=== PATIENT | male | born 1945 | race Hispanic/Latino ===

== ENCOUNTER 2020-07-23 10:33 | Outpatient (CLI) | payer OTHER ==
--- NOTE | 2020-07-23 14:35 | ULT ---
EXAM: ABDOMINAL AORTIC ULTRASOUND: 07/23/20 HISTORY: Screening study. TECHNIQUE: Fajardo scale, color flow, Doppler imaging with spectral waveform analysis of the aorta. FINDINGS: There are scattered atherosclerotic disease in the visualized aorta. There is patchy throughout the v isualized aorta. Proximal aorta measures 1.7 cm in the sagittal dimension, mid aorta measures 2.5 cm in sagittal dimension, distal aorta measures 1.2 cm in the sagittal dimension. Left iliac artery komal ures 1.3 cm and the right iliac measures 0.9 cm. IMPRESSION: Atherosclerosis involving the aorta, predominantly in the mid portion of the aorta. There is no evide nce of aneurysm by size criteria. POS: [facility]
== END 2020-07-23 10:34 | disposition home or self-care (01) ==
LOC: BICULT 10:33
DX: Z13.6 Encounter for screening for cardiovascular disorders (principal); I70.0 Atherosclerosis of aorta
CPT/HCPCS: 76775

== ENCOUNTER 2024-05-02 05:24 | Inpatient (IN) | payer MEDICARE, OTHER ==
[2024-05-02 05:51] LABS: Base Excess -10.1 mEq/L (-2.0 to +3.0); Calcium, Ionized (venous) 1.13 mmol/L (1.16-1.32); Chloride (VBG) 105 mmol/L (98-106); Hematocrit-VBG 29 % (42.0-52.0); Hemoglobin (Hb) 9.8 g/dL (12.6-17.4); Potassium (VBG) 3.99 mmol/L (3.70-5.30); Sodium 136 mmol/L (133-146)
[2024-05-02 05:52] LABS: #Basophils 0.05 10x3/uL (0.0-0.2); %Basophils 0.4 % (0.0-1.0); %Eosinophils 4.8 % (0.0-10.0); %Lymphocytes 25.9 % (21.0-51.0); %Monocytes 7.3 % (0.0-10.0); %Neutrophils 61.1 % (42.0-75.0); Hematocrit 28.6 % (42.0-52.0); Hemoglobin 9.4 g/dL (14.0-18.0); Mean Corpuscular HGB CONC 32.9 g/dL (32.0-36.0); Mean Corpuscular Hemoglobin 33.7 pg (27.0-31.0); Mean Corpuscular Volume 102.5 fL (78.0-98.0); Mean Platelet Volume 11.8 fL (7.4-10.4); Platelet Count 169 10x3/uL (130-400); RBC Distribution Width 14.3 % (11.5-14.5); Red Blood Cell (RBC) Count 2.79 mill/uL (4.70-6.10)
[2024-05-02 06:16] LABS: Troponin I 0.089 ng/mL (< 0.028)
[2024-05-02 06:20] LABS: ALT (SGPT) 5 U/L (8-55); AST (SGOT) 11 U/L (5-34); Albumin 3.2 g/dL (3.4-4.8); Alkaline Phosphatase 64 U/L (40-110); Anion Gap 15 mmol/L (10-20); BUN (Urea Nitrogen) 33 mg/dL (8.4-25.7); Bilirubin, Total 0.5 mg/dL (0.2-1.2); Calc. Creatinine Clearance 0 mL/min (70-130); Calcium 8.4 mg/dL (7.8-10.44); Carbon Dioxide 16 mmol/L (23-31); Chloride 108 mmol/L (98-107); Estimated GFR 23; Globulin 3.2 g/dL (2.4-3.5); Glucose 282 mg/dL (83-110); Magnesium 2.2 mg/dL (1.6-2.6); Potassium 4.3 mmol/L (3.5-5.1); Protein, Total 6.4 g/dL (5.8-8.1); Sodium 135 mmol/L (136-145)
[2024-05-02] MEDS ORDERED: Nicotine 14 MG PATCH TD PRN (07:55)
[2024-05-02] MEDS ORDERED: Ipratropium/Albuterol 3 ML NEB NEB PRN (08:01)
[2024-05-02] MEDS ORDERED: Nitroglycerin 50 MG/250 ML BOT 250 ML IVPB SCH (08:15)
[2024-05-02] MEDS ORDERED: niCARdipine 40MG In NaCl 40 MG/200 ML BAG IVPB SCH (09:00)
[2024-05-02 09:01] VITALS: BMI 19.9
[2024-05-02 09:27] LABS: Lactic Acid 1.34 mmol/L (0.5-2.2)
[2024-05-02 09:29] LABS: Hemoglobin A1c 5.1 % (4.0-6.0)
[2024-05-02 09:41] LABS: Troponin I 0.704 ng/mL (< 0.028)
[2024-05-02] MEDS: Cefepime 1 GM in Sodium Chloride 0.9% 100 ML IVPB SCH (09:46)
[2024-05-02] MEDS: Sodium Bicarbonate Tab 325 MG TAB PO SCH (09:56)
[2024-05-02] MEDS: hydrALAZINE 25 MG TAB PO SCH (09:57)
[2024-05-02] MEDS: Heparin 5,000 UNITS/ML VIAL SC SCH (09:58)
[2024-05-02] MEDS: niCARdipine 25 MG in Sodium Chloride 0.9% 250 ML 250 ML IVPB SCH (09:59)
[2024-05-02] MEDS: Ipratropium/Albuterol 3 ML NEB NEB SCH (10:11)
[2024-05-02 12:51] LABS: Troponin I 1.736 ng/mL (< 0.028)
[2024-05-02] MEDS: Furosemide 40 MG (4 mL) VIAL SLOW IVP SCH (14:26)
[2024-05-02 15:55] LABS: Anion Gap 15 mmol/L (10-20); BUN (Urea Nitrogen) 36 mg/dL (8.4-25.7); Calc. Creatinine Clearance 20 mL/min (70-130); Calcium 8.5 mg/dL (7.8-10.44); Carbon Dioxide 18 mmol/L (23-31); Chloride 107 mmol/L (98-107); Estimated GFR 26; Glucose 116 mg/dL (83-110); Potassium 4.3 mmol/L (3.5-5.1); Sodium 136 mmol/L (136-145)
[2024-05-02 16:31] LABS: Hematocrit 25.1 % (42.0-52.0); Hemoglobin 8.6 g/dL (14.0-18.0); Platelet Count 140 10x3/uL (130-400)
[2024-05-02] MEDS: Heparin 25,000 units/D5W 500 ML IVPB SCH (17:25)
[2024-05-02] MEDS: Heparin 10,000 UNITS/ 10 ML VIAL SLOW IVP SCH (17:25)
[2024-05-02] MEDS: DOBUTamine 500 mg/250 ml 250 ML IVPB SCH (22:26)
[2024-05-03 03:12] LABS: #Basophils 0.03 10x3/uL (0.0-0.2); %Basophils 0.3 % (0.0-1.0); %Eosinophils 0.5 % (0.0-10.0); %Lymphocytes 5.7 % (21.0-51.0); %Monocytes 10.4 % (0.0-10.0); %Neutrophils 82.7 % (42.0-75.0); Hematocrit 25.3 % (42.0-52.0); Hemoglobin 8.2 g/dL (14.0-18.0); Mean Corpuscular HGB CONC 32.4 g/dL (32.0-36.0); Mean Corpuscular Hemoglobin 32.4 pg (27.0-31.0); Mean Platelet Volume 11.6 fL (7.4-10.4); Platelet Count 150 10x3/uL (130-400); Red Blood Cell (RBC) Count 2.53 mill/uL (4.70-6.10)
[2024-05-03 03:34] LABS: Anion Gap 14 mmol/L (10-20); BUN (Urea Nitrogen) 41 mg/dL (8.4-25.7); Calc. Creatinine Clearance 19 mL/min (70-130); Calcium 8.4 mg/dL (7.8-10.44); Carbon Dioxide 20 mmol/L (23-31); Chloride 106 mmol/L (98-107); Estimated GFR 24; Glucose 140 mg/dL (83-110); Potassium 3.6 mmol/L (3.5-5.1); Sodium 136 mmol/L (136-145)
[2024-05-03 17:45] LABS: Troponin I 1.314 ng/mL (< 0.028)
[2024-05-03] MEDS: Ferrous Sulfate 325 MG TAB PO SCH (18:31)
[2024-05-03] MEDS: Labetalol HCl 100 MG/20 ML VIAL SLOW IVP PRN (19:15)
[2024-05-03] MEDS: Metoprolol Tartrate 25 MG TAB PO SCH (20:57)
[2024-05-03] MEDS: Enoxaparin 60 MG (0.6 mL) SYRINGE SC SCH (20:57)
[2024-05-03] MEDS: Atorvastatin Calcium 40 MG TAB PO SCH (20:57)
[2024-05-03] MEDS ORDERED: Metoprolol Tartrate 25 MG TAB PO SCH (21:00)
[2024-05-04 05:10] LABS: #Basophils Less than 0.03 10x3/uL (0.0-0.2); %Basophils 0.2 % (0.0-1.0); %Eosinophils 1.3 % (0.0-10.0); %Lymphocytes 11.8 % (21.0-51.0); %Neutrophils 73.3 % (42.0-75.0); Hematocrit 23.6 % (42.0-52.0); Hemoglobin 7.9 g/dL (14.0-18.0); Mean Corpuscular HGB CONC 33.5 g/dL (32.0-36.0); Mean Corpuscular Hemoglobin 31.9 pg (27.0-31.0); Mean Corpuscular Volume 95.2 fL (78.0-98.0); Mean Platelet Volume 11.7 fL (7.4-10.4); Platelet Count 154 10x3/uL (130-400); RBC Distribution Width 13.8 % (11.5-14.5); Red Blood Cell (RBC) Count 2.48 mill/uL (4.70-6.10)
[2024-05-04 05:47] LABS: ALT (SGPT) 5 U/L (8-55); AST (SGOT) 11 U/L (5-34); Albumin 2.7 g/dL (3.4-4.8); Alkaline Phosphatase 53 U/L (40-110); Bilirubin, Direct 0.2 mg/dL (0.1-0.3); Bilirubin, Total 0.4 mg/dL (0.2-1.2); Protein, Total 5.6 g/dL (5.8-8.1)
[2024-05-04 05:57] LABS: Anion Gap 13 mmol/L (10-20); BUN (Urea Nitrogen) 52 mg/dL (8.4-25.7); Calc. Creatinine Clearance 18 mL/min (70-130); Calcium 8.1 mg/dL (7.8-10.44); Carbon Dioxide 22 mmol/L (23-31); Cardiac Risk 2.9 (Less than 4.5); Chloride 108 mmol/L (98-107); Cholesterol 95 mg/dl (< 200 Desired); Estimated GFR 22; Glucose 99 mg/dL (83-110); HDL Cholesterol 33 mg/dL (>60 Neg Risk); LDL Cholesterol, Calculated 48 mg/dL; Potassium 3.4 mmol/L (3.5-5.1); Sodium 140 mmol/L (136-145); Triglycerides 72 mg/dL (Less than 150)
[2024-05-04] MEDS: Potassium Chloride 20 MEQ TAB PO SCH (10:15)
[2024-05-04] MEDS: Aspirin 81 mg Enteric Coated Tablet PO SCH (10:18)
[2024-05-04] MEDS: Furosemide 40 MG (4 mL) VIAL SLOW IVP SCH (10:18)
[2024-05-04] MEDS ORDERED: NIFEdipine XL 30 MG ER.TAB PO SCH (14:30)
[2024-05-04] MEDS: Amlodipine 10 MG TAB PO SCH (15:12)
[2024-05-04] MEDS: Albumin 25% 25 GM (100 mL) BOT IVPB SCH ×2 (15:12→20:46)
[2024-05-04 16:09] LABS: Hematocrit 23.5 % (42.0-52.0); Hemoglobin 7.8 g/dL (14.0-18.0); Platelet Count 149 10x3/uL (130-400)
[2024-05-04] MEDS: Atorvastatin Calcium 10 MG TAB PO SCH (20:47)
[2024-05-05 04:38] LABS: #Basophils Less than 0.03 10x3/uL (0.0-0.2); %Basophils 0.1 % (0.0-1.0); %Eosinophils 5.3 % (0.0-10.0); %Lymphocytes 13.6 % (21.0-51.0); %Monocytes 11.3 % (0.0-10.0); %Neutrophils 69.3 % (42.0-75.0); Hematocrit 21.1 % (42.0-52.0); Hemoglobin 6.9 g/dL (14.0-18.0); Mean Corpuscular HGB CONC 32.7 g/dL (32.0-36.0); Mean Corpuscular Hemoglobin 32.4 pg (27.0-31.0); Mean Corpuscular Volume 99.1 fL (78.0-98.0); Mean Platelet Volume 11.4 fL (7.4-10.4); Platelet Count 144 10x3/uL (130-400); RBC Distribution Width 14.1 % (11.5-14.5); Red Blood Cell (RBC) Count 2.13 mill/uL (4.70-6.10)
[2024-05-05 04:56] LABS: Anion Gap 15 mmol/L (10-20); BUN (Urea Nitrogen) 58 mg/dL (8.4-25.7); Calc. Creatinine Clearance 17 mL/min (70-130); Calcium 8.5 mg/dL (7.8-10.44); Carbon Dioxide 23 mmol/L (23-31); Chloride 107 mmol/L (98-107); Estimated GFR 22; Glucose 98 mg/dL (83-110); Iron 10 ug/dL (65-175); Potassium 3.5 mmol/L (3.5-5.1); Sodium 141 mmol/L (136-145)
[2024-05-05 05:10] LABS: Troponin I 0.803 ng/mL (< 0.028)
[2024-05-05 06:25] LABS: Ferritin 71.72 ng/mL (22-322)
[2024-05-05] MEDS ORDERED: NIFEdipine XL 30 MG ER.TAB PO SCH (09:00)
[2024-05-05] MEDS: Amlodipine 10 MG TAB PO SCH (09:18)
[2024-05-05] MEDS: Cyanocobalamin (Vitamin B-12) 1,000 MCG TAB PO SCH (09:19)
[2024-05-05] MEDS: Ferrous Sulfate 325 MG TAB PO SCH (09:19)
[2024-05-05] MEDS: Sodium Ferric Gluconate 250 MG in Sodium Chloride 0.9% 250 ML 250 ML IVPB SCH (15:58)
[2024-05-05 17:59] LABS: Bilirubin Negative (Negative); Blood, Urine Negative (Negative); CAUTI Indications for Culture Fever or rigors; Clarity Clear (Clear); Glucose, Urine (Dipstick) Normal (Negative); Ketone, Urine Negative (Negative); Leukocyte Negative Leu/uL (Negative); Nitrite Negative (Negative); Protein, Urine (Dipstick) 70 mg/dL (Neg-Trace); RBC/HPF 0-3 HPF (0-3); Specific Gravity, Urine 1.003 (1.002-1.036); Squamous Epithelial None Seen HPF (0-3); Urobilinogen Normal mg/dL (Less than 2); WBC/HPF 0-3 HPF (0-3); pH, Urine 6.5 (5.0-9.0)
[2024-05-05 18:06] LABS: Bacteria/HPF 1+ HPF (None Seen)
[2024-05-05 18:07] LABS: Urine Culture Reflex No No
[2024-05-06 05:30] LABS: #Basophils 0.03 10x3/uL (0.0-0.2); %Basophils 0.3 % (0.0-1.0); %Eosinophils 4.2 % (0.0-10.0); %Lymphocytes 8.6 % (21.0-51.0); %Monocytes 9.7 % (0.0-10.0); %Neutrophils 76.8 % (42.0-75.0); Hematocrit 25.8 % (42.0-52.0); Hemoglobin 8.6 g/dL (14.0-18.0); Mean Corpuscular HGB CONC 33.3 g/dL (32.0-36.0); Mean Corpuscular Hemoglobin 32.2 pg (27.0-31.0); Mean Corpuscular Volume 96.6 fL (78.0-98.0); Mean Platelet Volume 11.7 fL (7.4-10.4); Platelet Count 169 10x3/uL (130-400); Red Blood Cell (RBC) Count 2.67 mill/uL (4.70-6.10)
[2024-05-06 06:17] LABS: Anion Gap 14 mmol/L (10-20); BUN (Urea Nitrogen) 65 mg/dL (8.4-25.7); Calc. Creatinine Clearance 17 mL/min (70-130); Calcium 8.9 mg/dL (7.8-10.44); Carbon Dioxide 23 mmol/L (23-31); Chloride 108 mmol/L (98-107); Estimated GFR 22; Glucose 97 mg/dL (83-110); Potassium 3.4 mmol/L (3.5-5.1); Sodium 142 mmol/L (136-145)
[2024-05-06] MEDS: Potassium Chloride 20 MEQ TAB PO SCH (10:17)
[2024-05-06] MEDS: Heparin 5,000 UNITS/ML VIAL SC SCH (10:18)
[2024-05-06] MEDS: Furosemide 40 MG TAB PO SCH (10:18)
[2024-05-06] MEDS: Acetaminophen 325 MG TAB PO PRN (11:03)
[2024-05-06 16:58] LABS: Hematocrit 27.3 % (42.0-52.0); Hemoglobin 9.2 g/dL (14.0-18.0); Platelet Count 177 10x3/uL (130-400)
[2024-05-07 04:10] LABS: #Basophils Less than 0.03 10x3/uL (0.0-0.2); %Basophils 0.2 % (0.0-1.0); %Lymphocytes 12.5 % (21.0-51.0); %Monocytes 9.7 % (0.0-10.0); %Neutrophils 72.4 % (42.0-75.0); Hematocrit 26.9 % (42.0-52.0); Hemoglobin 8.9 g/dL (14.0-18.0); Mean Corpuscular HGB CONC 33.1 g/dL (32.0-36.0); Mean Corpuscular Hemoglobin 31.6 pg (27.0-31.0); Mean Corpuscular Volume 95.4 fL (78.0-98.0); Mean Platelet Volume 11.4 fL (7.4-10.4); Platelet Count 172 10x3/uL (130-400); RBC Distribution Width 14.7 % (11.5-14.5); Red Blood Cell (RBC) Count 2.82 mill/uL (4.70-6.10)
[2024-05-07 04:35] LABS: Anion Gap 16 mmol/L (10-20); BUN (Urea Nitrogen) 60 mg/dL (8.4-25.7); Calc. Creatinine Clearance 18 mL/min (70-130); Carbon Dioxide 24 mmol/L (23-31); Chloride 107 mmol/L (98-107); Estimated GFR 22; Glucose 93 mg/dL (83-110); Sodium 143 mmol/L (136-145)
[2024-05-07] MEDS: NIFEdipine XL 60 MG ER.TAB PO SCH (09:29)
[2024-05-07] MEDS: Ferrous Sulfate 325 MG TAB PO SCH (09:30)
[2024-05-07 16:09] VITALS: BP 109/53; TEMP 97.9
[2024-05-07] MEDS ORDERED: Metoprolol Tartrate 25 MG TAB PO SCH (21:00)
== END 2024-05-07 17:12 | disposition home or self-care (01) | DRG 280 ==
LOC: ERS 05:24 → CCU 08:51 → 2NO 05-03 20:25
PROVIDERS: ADMIT Family Medicine; ATTEND Internal Medicine
PROC: 5A09357 Assistance with Respiratory Ventilation, Less than 24 Consecutive Hours, Continuous Positive Airway Pressure (ICD-10-PCS; 2024-05-02)
PROC: 30233J1 Transfusion of Nonautologous Serum Albumin into Peripheral Vein, Percutaneous Approach (ICD-10-PCS; 2024-05-04)
PROC: 30233N1 Transfusion of Nonautologous Red Blood Cells into Peripheral Vein, Percutaneous Approach (ICD-10-PCS; principal; 2024-05-05)
DX: I11.0 Hypertensive heart disease with heart failure (principal); I50.33 Acute on chronic diastolic (congestive) heart failure; I21.A1 Myocardial infarction type 2; J96.01 Acute respiratory failure with hypoxia; E87.20 Acidosis, unspecified; N17.9 Acute kidney failure, unspecified; I16.1 Hypertensive emergency; J44.1 Chronic obstructive pulmonary disease with (acute) exacerbation; D63.1 Anemia in chronic kidney disease; F17.210 Nicotine dependence, cigarettes, uncomplicated; Z79.82 Long term (current) use of aspirin; Z79.899 Other long term (current) drug therapy; Z98.41 Cataract extraction status, right eye; I73.9 Peripheral vascular disease, unspecified; E78.5 Hyperlipidemia, unspecified
CPT/HCPCS: 36415; 36416; 36430; 71045; 76770; 80048; 80053; 80061; 80076; 81001; 82274; 82607; 82728; 82805; 83036; 83540; 83605; 83735; 83880; 84443; 84484; 85014; 85018; 85025; 85046; 85049; 85730; 86850; 86900; 86901; 87040; 93005; 93306; 93798; 94640; 94660; 96365; 96366; 96375; J0692; J1250; J1644; J1650; J1940; J2916; J7050; J7620; P9016; P9047

== ENCOUNTER 2024-05-13 09:35 | Emergency (ER) | payer MEDICARE, SELFPAY | END 2024-05-13 12:59 | disposition home or self-care (01) | LOC: ERS 09:35 | DX: I82.621 Acute embolism and thrombosis of deep veins of right upper extremity (principal); I13.0 Hypertensive heart and chronic kidney disease with heart failure and stage 1 through stage 4 chronic kidney disease, or unspecified chronic kidney disease; N18.9 Chronic kidney disease, unspecified; J44.9 Chronic obstructive pulmonary disease, unspecified; I50.30 Unspecified diastolic (congestive) heart failure; F17.210 Nicotine dependence, cigarettes, uncomplicated ==

== ENCOUNTER 2024-05-16 07:53 | Inpatient (IN) | payer MEDICARE, SELFPAY ==
[2024-05-16] MEDS ORDERED: ADMIXTURE FEE IV SCH (10:00)
[2024-05-16] MEDS ORDERED: HUMAN PROTHROMBIN CMP IV SCH (10:00)
[2024-05-17] MEDS ORDERED: Calcium Carbonate 500 MG ChewTAB PO PRN (06:18)
[2024-05-17] MEDS: hydrALAZINE 25 MG TAB PO SCH (06:29)
[2024-05-17] MEDS ORDERED: Lidocaine 1% PF 5 ML VIAL ONE (07:32)
[2024-05-17] MEDS ORDERED: PROPOFOL 0 ML ONE (07:32)
[2024-05-17] MEDS ORDERED: Ondansetron HCl/PF 4 MG/2 ML Vial IVP PRN (08:16)
[2024-05-17] MEDS ORDERED: Promethazine HCl 25 MG/ML VIAL IM PRN (08:16)
[2024-05-17] MEDS ORDERED: PROPOFOL 20 ML ONE (08:22)
[2024-05-17] MEDS ORDERED: Furosemide 40 MG TAB PO SCH (09:00)
[2024-05-17] MEDS ORDERED: Pantoprazole 40 MG VIAL IVP SCH ×2 (09:00)
[2024-05-17] MEDS ORDERED: Rosuvastatin 10 MG TAB PO SCH (09:00)
[2024-05-17 09:47] LABS: #Basophils 0.03 10x3/uL (0.0-0.2); %Basophils 0.3 % (0.0-1.0); %Lymphocytes 7.9 % (21.0-51.0); %Monocytes 6.6 % (0.0-10.0); %Neutrophils 83.7 % (42.0-75.0); Hematocrit 23.4 % (42.0-52.0); Hemoglobin 7.9 g/dL (14.0-18.0); Mean Corpuscular HGB CONC 33.8 g/dL (32.0-36.0); Mean Corpuscular Hemoglobin 31.5 pg (27.0-31.0); Mean Corpuscular Volume 93.2 fL (78.0-98.0); Mean Platelet Volume 11.3 fL (7.4-10.4); Platelet Count 180 10x3/uL (130-400); Red Blood Cell (RBC) Count 2.51 mill/uL (4.70-6.10)
[2024-05-17 10:04] LABS: ALT (SGPT) 6 U/L (8-55); AST (SGOT) 11 U/L (5-34); Albumin 2.8 g/dL (3.4-4.8); Alkaline Phosphatase 39 U/L (40-110); Anion Gap 15 mmol/L (10-20); BUN (Urea Nitrogen) 96 mg/dL (8.4-25.7); Bilirubin, Total 0.7 mg/dL (0.2-1.2); Calc. Creatinine Clearance 19 mL/min (70-130); Calcium 8.5 mg/dL (7.8-10.44); Carbon Dioxide 20 mmol/L (23-31); Chloride 116 mmol/L (98-107); Estimated GFR 24; Globulin 2.4 g/dL (2.4-3.5); Glucose 117 mg/dL (83-110); Potassium 4.4 mmol/L (3.5-5.1); Protein, Total 5.2 g/dL (5.8-8.1); Sodium 147 mmol/L (136-145)
[2024-05-17] MEDS: FLU (Fluad Triv) TS24-25 (65UP)/MF59C/PF 45 MCG/0.5 ML Syringe IM ONE (11:23)
[2024-05-17] MEDS: Furosemide 40 MG TAB PO SCH (11:24)
[2024-05-17] MEDS: NIFEdipine XL 60 MG ER.TAB PO SCH (11:24)
[2024-05-17] MEDS: Sodium Bicarbonate Tab 325 MG TAB PO SCH (11:25)
[2024-05-17] MEDS: Pantoprazole 40 MG VIAL ONE (11:26)
[2024-05-17] MEDS: Guaifenesin DM 100-10/5 ML UDCUP PO PRN (11:29)
[2024-05-17 11:32] LABS: ALT (SGPT) Less than 5 U/L (8-55); AST (SGOT) 8 U/L (5-34); Albumin 2.8 g/dL (3.4-4.8); Alkaline Phosphatase 45 U/L (40-110); Anion Gap 19 mmol/L (10-20); BUN (Urea Nitrogen) 98 mg/dL (8.4-25.7); Bilirubin, Total 0.2 mg/dL (0.2-1.2); Calc. Creatinine Clearance 19 mL/min (70-130); Calcium 8.3 mg/dL (7.8-10.44); Carbon Dioxide 20 mmol/L (23-31); Chloride 109 mmol/L (98-107); Estimated GFR 23; Globulin 2.2 g/dL (2.4-3.5); Glucose 203 mg/dL (83-110); Potassium 4.6 mmol/L (3.5-5.1); Sodium 143 mmol/L (136-145)
[2024-05-17 11:59] LABS: Troponin I 0.038 ng/mL (< 0.028)
[2024-05-17] MEDS: Metoprolol Tartrate 25 MG TAB PO SCH (12:55)
[2024-05-17 14:17] LABS: Anion Gap 14 mmol/L (10-20); BUN (Urea Nitrogen) 102 mg/dL (8.4-25.7); Calc. Creatinine Clearance 20 mL/min (70-130); Carbon Dioxide 19 mmol/L (23-31); Chloride 114 mmol/L (98-107); Estimated GFR 24; Glucose 120 mg/dL (83-110); Potassium 4.6 mmol/L (3.5-5.1); Sodium 142 mmol/L (136-145)
[2024-05-17 15:30] LABS: #Basophils Less than 0.03 10x3/uL (0.0-0.2); #Eosinophils Less than 0.03 10x3/uL (0.0-0.7); %Basophils 0.2 % (0.0-1.0); %Eosinophils 0.2 % (0.0-10.0); %Lymphocytes 8.5 % (21.0-51.0); %Monocytes 6.8 % (0.0-10.0); %Neutrophils 83.6 % (42.0-75.0); Hematocrit 23.4 % (42.0-52.0); Mean Corpuscular HGB CONC 34.2 g/dL (32.0-36.0); Mean Corpuscular Hemoglobin 31.5 pg (27.0-31.0); Mean Corpuscular Volume 92.1 fL (78.0-98.0); Mean Platelet Volume 11.2 fL (7.4-10.4); Platelet Count 170 10x3/uL (130-400); RBC Distribution Width 15.9 % (11.5-14.5); Red Blood Cell (RBC) Count 2.54 mill/uL (4.70-6.10)
[2024-05-17 16:16] LABS: INR-International Normal Ratio 1.6; PTT 32.8 sec (22.9-36.1); Prothrombin Time 19.2 sec (12.0-14.7)
[2024-05-17 16:18] LABS: #Basophils 0.03 10x3/uL (0.0-0.2); %Basophils 0.2 % (0.0-1.0); %Eosinophils 1.5 % (0.0-10.0); %Lymphocytes 17.6 % (21.0-51.0); %Monocytes 5.4 % (0.0-10.0); %Neutrophils 74.5 % (42.0-75.0); Hematocrit 19.6 % (42.0-52.0); Hemoglobin 6.3 g/dL (14.0-18.0); Mean Corpuscular HGB CONC 32.1 g/dL (32.0-36.0); Mean Corpuscular Hemoglobin 32.3 pg (27.0-31.0); Mean Corpuscular Volume 100.5 fL (78.0-98.0); Mean Platelet Volume 11.4 fL (7.4-10.4); Platelet Count 238 10x3/uL (130-400); RBC Distribution Width 14.1 % (11.5-14.5); Red Blood Cell (RBC) Count 1.95 mill/uL (4.70-6.10)
[2024-05-17] MEDS: Pantoprazole DR 40 MG TAB PO SCH (20:31)
[2024-05-17] MEDS: Rosuvastatin 10 MG TAB PO SCH (20:31)
[2024-05-18 07:24] LABS: Hematocrit 21.3 % (42.0-52.0); Hemoglobin 6.9 g/dL (14.0-18.0); Mean Corpuscular HGB CONC 32.4 g/dL (32.0-36.0); Mean Corpuscular Hemoglobin 30.9 pg (27.0-31.0); Mean Corpuscular Volume 95.5 fL (78.0-98.0); Mean Platelet Volume 11.1 fL (7.4-10.4); Platelet Count 178 10x3/uL (130-400); RBC Distribution Width 16.2 % (11.5-14.5); Red Blood Cell (RBC) Count 2.23 mill/uL (4.70-6.10)
[2024-05-18 07:39] LABS: Anion Gap 12 mmol/L (10-20); BUN (Urea Nitrogen) 84 mg/dL (8.4-25.7); Calc. Creatinine Clearance 19 mL/min (70-130); Calcium 8.5 mg/dL (7.8-10.44); Carbon Dioxide 23 mmol/L (23-31); Chloride 110 mmol/L (98-107); Estimated GFR 23; Glucose 110 mg/dL (83-110); Potassium 4.1 mmol/L (3.5-5.1); Sodium 141 mmol/L (136-145)
[2024-05-18] MEDS ORDERED: hydrALAZINE 25 MG TAB PO PRN (08:13)
[2024-05-18 19:43] VITALS: BP 140/64; TEMP 97.5
== END 2024-05-18 15:53 | disposition home or self-care (01) | DRG 378 ==
LOC: ERS 07:53 → T4-A 12:16
PROVIDERS: ADMIT Family Medicine; ATTEND Hospitalist
PROC: 0W3P8ZZ Control Bleeding in Gastrointestinal Tract, Via Natural or Artificial Opening Endoscopic (ICD-10-PCS; principal; 2024-05-17)
PROC: 30233N1 Transfusion of Nonautologous Red Blood Cells into Peripheral Vein, Percutaneous Approach (ICD-10-PCS; 2024-05-18)
DX: K31.811 Angiodysplasia of stomach and duodenum with bleeding (principal); D62 Acute posthemorrhagic anemia; I13.0 Hypertensive heart and chronic kidney disease with heart failure and stage 1 through stage 4 chronic kidney disease, or unspecified chronic kidney disease; I82.621 Acute embolism and thrombosis of deep veins of right upper extremity; N18.4 Chronic kidney disease, stage 4 (severe); K22.10 Ulcer of esophagus without bleeding; I25.10 Atherosclerotic heart disease of native coronary artery without angina pectoris; I50.9 Heart failure, unspecified; I73.9 Peripheral vascular disease, unspecified; F17.210 Nicotine dependence, cigarettes, uncomplicated; F10.90 Alcohol use, unspecified, uncomplicated; Z98.890 Other specified postprocedural states; Z90.89 Acquired absence of other organs; Z79.899 Other long term (current) drug therapy; D63.1 Anemia in chronic kidney disease; R91.1 Solitary pulmonary nodule; Z90.49 Acquired absence of other specified parts of digestive tract; Z71.6 Tobacco abuse counseling; R63.4 Abnormal weight loss; Z68.20 Body mass index [BMI] 20.0-20.9, adult; R53.1 Weakness; Z87.891 Personal history of nicotine dependence
CPT/HCPCS: 36415; 36430; 71045; 71250; 80048; 80053; 82274; 84484; 85025; 85027; 85610; 85730; 86850; 86900; 86901; 93005; 96365; 96375; J2704; P9016

== ENCOUNTER 2024-05-27 12:05 | Inpatient (IN) | payer MEDICARE ==
[2024-05-27 13:34] LABS: #Basophils 0.03 10x3/uL (0.0-0.2); %Basophils 0.3 % (0.0-1.0); %Eosinophils 1.4 % (0.0-10.0); %Lymphocytes 8.8 % (21.0-51.0); %Monocytes 7.2 % (0.0-10.0); %Neutrophils 81.6 % (42.0-75.0); Hemoglobin 5.7 g/dL (14.0-18.0); Mean Corpuscular HGB CONC 31.7 g/dL (32.0-36.0); Mean Corpuscular Hemoglobin 32.4 pg (27.0-31.0); Mean Corpuscular Volume 102.3 fL (78.0-98.0); Mean Platelet Volume 10.8 fL (7.4-10.4); Platelet Count 208 10x3/uL (130-400); RBC Distribution Width 17.2 % (11.5-14.5); Red Blood Cell (RBC) Count 1.76 mill/uL (4.70-6.10)
[2024-05-27 13:48] LABS: ALT (SGPT) 5 U/L (8-55); AST (SGOT) 9 U/L (5-34); Alkaline Phosphatase 46 U/L (40-110); Anion Gap 14 mmol/L (10-20); BUN (Urea Nitrogen) 62 mg/dL (8.4-25.7); Bilirubin, Total 0.3 mg/dL (0.2-1.2); Calc. Creatinine Clearance 0 mL/min (70-130); Calcium 8.1 mg/dL (7.8-10.44); Carbon Dioxide 24 mmol/L (23-31); Chloride 103 mmol/L (98-107); Estimated GFR 19; Globulin 2.4 g/dL (2.4-3.5); Glucose 135 mg/dL (83-110); Lipase 84 U/L (8-78); PTT 27.4 sec (22.9-36.1); Potassium 3.9 mmol/L (3.5-5.1); Protein, Total 5.4 g/dL (5.8-8.1); Sodium 137 mmol/L (136-145)
[2024-05-27 13:49] LABS: Troponin I 0.086 ng/mL (< 0.028)
[2024-05-27 13:52] LABS: INR-International Normal Ratio 1.1; Prothrombin Time 14.3 sec (12.0-14.7)
[2024-05-27] MEDS ORDERED: Pantoprazole 40 MG VIAL ONE (14:50)
[2024-05-27] MEDS ORDERED: Ondansetron PF 4 MG/2 ML Vial ONE (15:50)
[2024-05-27] MEDS ORDERED: Morphine 4 MG/ML VIAL ONE (15:50)
[2024-05-27] MEDS ORDERED: Famotidine/PF 20 mg/2ml Vial ONE (16:13)
[2024-05-27 19:14] VITALS: BMI 24.0
[2024-05-27 19:25] LABS: Troponin I 0.052 ng/mL (< 0.028)
[2024-05-27] MEDS ORDERED: Ondansetron PF 4 MG/2 ML Vial IVP PRN (19:26)
[2024-05-27] MEDS ORDERED: hydrALAZINE 20 MG/ML VIAL SLOW IVP PRN (19:33)
[2024-05-27] MEDS: Sodium Bicarbonate Tab 325 MG TAB PO SCH (21:11)
[2024-05-27] MEDS: hydrALAZINE 25 MG TAB PO SCH (21:12)
[2024-05-27] MEDS: Metoprolol Tartrate 25 MG TAB PO SCH (21:12)
[2024-05-27] MEDS: Sodium Chloride 0.9% 1,000 ML IV SCH (23:53)
[2024-05-27] MEDS: Pantoprazole 80 MG, Admixture Fee 1 EACH in Sodium Chloride 0.9% 100 ML IVPB SCH (23:53)
[2024-05-28 00:57] LABS: Hematocrit 21.8 % (42.0-52.0); Hemoglobin 7.2 g/dL (14.0-18.0)
[2024-05-28 01:23] LABS: Iron 43 ug/dL (65-175); Iron Binding Capacity, Total 216 mcg/dL (261-462)
[2024-05-28 01:28] LABS: Troponin I 0.066 ng/mL (< 0.028)
[2024-05-28] MEDS ORDERED: Furosemide 20 MG (2 mL) VIAL IVP SCH (03:00)
[2024-05-28 04:44] LABS: #Basophils Less than 0.03 10x3/uL (0.0-0.2); %Basophils 0.2 % (0.0-1.0); %Eosinophils 2.8 % (0.0-10.0); %Lymphocytes 10.7 % (21.0-51.0); %Monocytes 9.5 % (0.0-10.0); %Neutrophils 76.5 % (42.0-75.0); Hematocrit 22.2 % (42.0-52.0); Hemoglobin 7.5 g/dL (14.0-18.0); Mean Corpuscular HGB CONC 33.8 g/dL (32.0-36.0); Mean Corpuscular Hemoglobin 31.9 pg (27.0-31.0); Mean Corpuscular Volume 94.5 fL (78.0-98.0); Mean Platelet Volume 11.2 fL (7.4-10.4); Platelet Count 167 10x3/uL (130-400); Red Blood Cell (RBC) Count 2.35 mill/uL (4.70-6.10)
[2024-05-28 05:03] LABS: Anion Gap 12 mmol/L (10-20); BUN (Urea Nitrogen) 59 mg/dL (8.4-25.7); Calc. Creatinine Clearance 19 mL/min (70-130); Calcium 8.2 mg/dL (7.8-10.44); Carbon Dioxide 25 mmol/L (23-31); Chloride 108 mmol/L (98-107); Estimated GFR 21; Glucose 95 mg/dL (83-110); Potassium 3.9 mmol/L (3.5-5.1); Sodium 141 mmol/L (136-145)
[2024-05-28] MEDS ORDERED: Ferrous Sulfate 325 MG TAB PO SCH (08:00)
[2024-05-28] MEDS ORDERED: Lidocaine 2% PF 5 ML VIAL ONE (08:06)
[2024-05-28] MEDS ORDERED: PHENYLEPHRINE-NS 100 MCG/ML 10 ML SYRINGE ONE (08:06)
[2024-05-28] MEDS ORDERED: PROPOFOL 20 ML ONE (08:07)
[2024-05-28] MEDS ORDERED: Furosemide 20 MG (2 mL) VIAL ONE (08:39)
[2024-05-28] MEDS ORDERED: hydrALAZINE 20 MG/ML VIAL ONE (09:01)
[2024-05-28] MEDS: Cyanocobalamin (Vitamin B-12) 1,000 MCG TAB PO SCH (10:26)
[2024-05-28 11:00] VITALS: BMI 24.0
[2024-05-28] MEDS: Acetaminophen 325 MG TAB PO PRN (15:32)
[2024-05-28] MEDS: Sodium Chloride 0.9% 1,000 ML IV SCH (18:44)
[2024-05-28] MEDS: Pantoprazole 40 MG VIAL IVP SCH (20:54)
[2024-05-29 04:51] LABS: #Basophils Less than 0.03 10x3/uL (0.0-0.2); %Basophils 0.1 % (0.0-1.0); %Eosinophils 3.9 % (0.0-10.0); %Lymphocytes 6.5 % (21.0-51.0); %Neutrophils 82.3 % (42.0-75.0); Hematocrit 24.4 % (42.0-52.0); Hemoglobin 8.2 g/dL (14.0-18.0); Mean Corpuscular HGB CONC 33.6 g/dL (32.0-36.0); Mean Corpuscular Hemoglobin 31.8 pg (27.0-31.0); Mean Corpuscular Volume 94.6 fL (78.0-98.0); Platelet Count 149 10x3/uL (130-400); RBC Distribution Width 19.1 % (11.5-14.5); Red Blood Cell (RBC) Count 2.58 mill/uL (4.70-6.10)
[2024-05-29 05:24] LABS: ALT (SGPT) Less than 5 U/L (8-55); AST (SGOT) 11 U/L (5-34); Albumin 2.4 g/dL (3.4-4.8); Alkaline Phosphatase 58 U/L (40-110); Anion Gap 12 mmol/L (10-20); BUN (Urea Nitrogen) 53 mg/dL (8.4-25.7); Bilirubin, Total 0.4 mg/dL (0.2-1.2); Calc. Creatinine Clearance 19 mL/min (70-130); Calcium 7.6 mg/dL (7.8-10.44); Carbon Dioxide 23 mmol/L (23-31); Chloride 112 mmol/L (98-107); Estimated GFR 21; Globulin 2.1 g/dL (2.4-3.5); Glucose 96 mg/dL (83-110); Potassium 3.6 mmol/L (3.5-5.1); Protein, Total 4.5 g/dL (5.8-8.1); Sodium 143 mmol/L (136-145)
[2024-05-29 12:43] VITALS: BP 131/57; TEMP 97.3
== END 2024-05-29 13:30 | disposition home or self-care (01) | DRG 378 ==
LOC: ERS 12:05 → ERHOLD 17:32 → 2NO 21:01
PROVIDERS: ADMIT Family Medicine; ATTEND Internal Medicine
PROC: 30233N1 Transfusion of Nonautologous Red Blood Cells into Peripheral Vein, Percutaneous Approach (ICD-10-PCS; 2024-05-27)
PROC: 0W3P8ZZ Control Bleeding in Gastrointestinal Tract, Via Natural or Artificial Opening Endoscopic (ICD-10-PCS; principal; 2024-05-28)
DX: K25.4 Chronic or unspecified gastric ulcer with hemorrhage (principal); D62 Acute posthemorrhagic anemia; N17.9 Acute kidney failure, unspecified; I5A Non-ischemic myocardial injury (non-traumatic); I50.32 Chronic diastolic (congestive) heart failure; I13.0 Hypertensive heart and chronic kidney disease with heart failure and stage 1 through stage 4 chronic kidney disease, or unspecified chronic kidney disease; N18.30 Chronic kidney disease, stage 3 unspecified; K80.20 Calculus of gallbladder without cholecystitis without obstruction; K44.9 Diaphragmatic hernia without obstruction or gangrene; Z98.890 Other specified postprocedural states; I71.40 Abdominal aortic aneurysm, without rupture, unspecified; Z90.89 Acquired absence of other organs; Z90.49 Acquired absence of other specified parts of digestive tract
CPT/HCPCS: 36415; 36416; 36430; 71046; 74176; 80048; 80053; 82728; 83540; 83550; 83690; 83880; 84484; 85025; 85610; 85730; 86850; 86900; 86901; 93005; 96374; 96375; J0360; J1940; J2272; J2405; J2470; J2704; J3490; J7030; P9016

== ENCOUNTER 2024-06-07 15:27 | Emergency (ER) | payer MEDICARE ==
[2024-06-07 16:12] LABS: ALT (SGPT) 7 U/L (8-55); AST (SGOT) 11 U/L (5-34); Albumin 2.7 g/dL (3.4-4.8); Alkaline Phosphatase 56 U/L (40-110); Anion Gap 10 mmol/L (10-20); BUN (Urea Nitrogen) 37 mg/dL (8.4-25.7); Bilirubin, Total 0.3 mg/dL (0.2-1.2); Calc. Creatinine Clearance 0 mL/min (70-130); Carbon Dioxide 23 mmol/L (23-31); Chloride 111 mmol/L (98-107); Estimated GFR 26; Globulin 2.3 g/dL (2.4-3.5); Glucose 119 mg/dL (83-110); Lipase 59 U/L (8-78); Magnesium 2.1 mg/dL (1.6-2.6); Potassium 4.4 mmol/L (3.5-5.1); Sodium 140 mmol/L (136-145)
[2024-06-07 16:18] LABS: Troponin I 0.029 ng/mL (< 0.028)
[2024-06-07 16:25] LABS: #Basophils Less than 0.03 10x3/uL (0.0-0.2); %Basophils 0.1 % (0.0-1.0); %Eosinophils 3.1 % (0.0-10.0); %Lymphocytes 8.5 % (21.0-51.0); %Monocytes 6.6 % (0.0-10.0); %Neutrophils 81.3 % (42.0-75.0); Hematocrit 23.1 % (42.0-52.0); Hemoglobin 7.5 g/dL (14.0-18.0); Mean Corpuscular HGB CONC 32.5 g/dL (32.0-36.0); Mean Corpuscular Hemoglobin 32.1 pg (27.0-31.0); Mean Corpuscular Volume 98.7 fL (78.0-98.0); Mean Platelet Volume 11.1 fL (7.4-10.4); Platelet Count 129 10x3/uL (130-400); RBC Distribution Width 16.2 % (11.5-14.5); Red Blood Cell (RBC) Count 2.34 mill/uL (4.70-6.10)
[2024-06-07 16:58] LABS: Anisocytosis SLIGHT = 6-15 cells HPF (0-5); Burr Cells SLIGHT = 2-5 cells HPF (0-1); Hypochromia SLIGHT = 6-15 cells HPF (0-5); Macrocytosis SLIGHT = 6-15 cells HPF (0-5); Ovalocytes SLIGHT = 2-5 cells HPF (0-1); Platelet Adequacy Comment Platelets Decreased; Polychromasia SLIGHT = 2-3 cells HPF (0-2); Schistocytes SLIGHT = 2-5 cells HPF (0-1)
[2024-06-07] MEDS ORDERED: Pantoprazole 40 MG VIAL ONE (17:02)
== END 2024-06-07 17:29 | disposition home or self-care (01) ==
LOC: ERS 15:27
DX: D50.0 Iron deficiency anemia secondary to blood loss (chronic) (principal); I10 Essential (primary) hypertension; F17.210 Nicotine dependence, cigarettes, uncomplicated
CPT/HCPCS: 80053; 83690; 83735; 83880; 84484; 85025; 86850; 86900; 86901; 93005; J2470; 36415; 96374

== ENCOUNTER 2024-06-14 11:51 | Inpatient (IN) | payer OTHER ==
[2024-06-14 12:45] LABS: #Basophils Less than 0.03 10x3/uL (0.0-0.2); %Basophils 0.2 % (0.0-1.0); %Eosinophils 3.1 % (0.0-10.0); %Lymphocytes 10.2 % (21.0-51.0); %Monocytes 6.3 % (0.0-10.0); %Neutrophils 79.8 % (42.0-75.0); Hematocrit 20.8 % (42.0-52.0); Hemoglobin 6.7 g/dL (14.0-18.0); Mean Corpuscular HGB CONC 32.2 g/dL (32.0-36.0); Mean Corpuscular Hemoglobin 32.7 pg (27.0-31.0); Mean Corpuscular Volume 101.5 fL (78.0-98.0); Mean Platelet Volume 11.1 fL (7.4-10.4); Platelet Count 127 10x3/uL (130-400); RBC Distribution Width 15.9 % (11.5-14.5); Red Blood Cell (RBC) Count 2.05 mill/uL (4.70-6.10)
[2024-06-14 13:02] LABS: Troponin I 0.049 ng/mL (< 0.028)
[2024-06-14 13:04] LABS: ALT (SGPT) 7 U/L (8-55); AST (SGOT) 12 U/L (5-34); Albumin 3.1 g/dL (3.4-4.8); Alkaline Phosphatase 51 U/L (40-110); Anion Gap 13 mmol/L (10-20); BUN (Urea Nitrogen) 47 mg/dL (8.4-25.7); Bilirubin, Total 0.3 mg/dL (0.2-1.2); Calc. Creatinine Clearance 0 mL/min (70-130); Calcium 8.3 mg/dL (7.8-10.44); Carbon Dioxide 22 mmol/L (23-31); Chloride 107 mmol/L (98-107); Estimated GFR 25; Globulin 2.5 g/dL (2.4-3.5); Glucose 116 mg/dL (83-110); Potassium 3.9 mmol/L (3.5-5.1); Protein, Total 5.6 g/dL (5.8-8.1); Sodium 138 mmol/L (136-145)
[2024-06-14] MEDS ORDERED: hydrALAZINE 20 MG/ML VIAL ONE (16:23)
[2024-06-14] MEDS ORDERED: Milk Of Magnesia 30 ML UDCUP ONE (16:26)
[2024-06-14] MEDS ORDERED: Lidocaine Viscous Sol 2% 15 ml UD Cup ONE (16:28)
[2024-06-14 17:00] LABS: Troponin I 0.061 ng/mL (< 0.028)
[2024-06-14] MEDS ORDERED: Furosemide 20 MG (2 mL) VIAL ONE ×2 (17:22→17:43)
[2024-06-14] MEDS ORDERED: Acetaminophen 325 MG TAB PO PRN (18:20)
[2024-06-14] MEDS ORDERED: Ondansetron PF 4 MG/2 ML Vial IVP PRN (18:20)
[2024-06-14] MEDS ORDERED: Ondansetron ODT 4 MG TAB PO PRN (18:20)
[2024-06-14] MEDS ORDERED: Pantoprazole 40 MG VIAL ONE (18:37)
[2024-06-14] MEDS: Pantoprazole 40 MG VIAL IVP SCH (18:42)
[2024-06-14 20:38] LABS: Hematocrit 24.3 % (42.0-52.0)
[2024-06-14 20:58] LABS: Troponin I 0.171 ng/mL (< 0.028)
[2024-06-14] MEDS ORDERED: Pantoprazole DR 40 MG TAB PO SCH (21:00)
[2024-06-14] MEDS ORDERED: Sodium Bicarbonate Tab 325 MG TAB ONE (21:45)
[2024-06-14] MEDS ORDERED: hydrALAZINE 25 MG TAB ONE (21:46)
[2024-06-14] MEDS ORDERED: Metoprolol Tartrate 25 MG TAB ONE (21:46)
[2024-06-14] MEDS: hydrALAZINE 25 MG TAB PO SCH (21:49)
[2024-06-14] MEDS: Sodium Bicarbonate Tab 325 MG TAB PO SCH (21:49)
[2024-06-14] MEDS: Metoprolol Tartrate 25 MG TAB PO SCH (21:49)
[2024-06-14 23:38] LABS: Troponin I 0.365 ng/mL (< 0.028)
[2024-06-15 05:25] LABS: #Basophils Less than 0.03 10x3/uL (0.0-0.2); %Basophils 0.3 % (0.0-1.0); %Eosinophils 3.2 % (0.0-10.0); %Lymphocytes 14.3 % (21.0-51.0); %Monocytes 11.4 % (0.0-10.0); %Neutrophils 70.5 % (42.0-75.0); Hematocrit 21.2 % (42.0-52.0); Hemoglobin 7.1 g/dL (14.0-18.0); Mean Corpuscular HGB CONC 33.5 g/dL (32.0-36.0); Mean Corpuscular Volume 95.5 fL (78.0-98.0); Mean Platelet Volume 11.7 fL (7.4-10.4); Platelet Count 121 10x3/uL (130-400); RBC Distribution Width 17.6 % (11.5-14.5); Red Blood Cell (RBC) Count 2.22 mill/uL (4.70-6.10)
[2024-06-15 06:00] LABS: Anion Gap 14 mmol/L (10-20); BUN (Urea Nitrogen) 48 mg/dL (8.4-25.7); Calc. Creatinine Clearance 22 mL/min (70-130); Calcium 8.2 mg/dL (7.8-10.44); Carbon Dioxide 22 mmol/L (23-31); Chloride 109 mmol/L (98-107); Estimated GFR 26; Glucose 84 mg/dL (83-110); Magnesium 2.2 mg/dL (1.6-2.6); Potassium 3.9 mmol/L (3.5-5.1); Sodium 141 mmol/L (136-145)
[2024-06-15] MEDS ORDERED: Furosemide 20 MG (2 mL) VIAL SLOW IVP SCH ×2 (06:00→09:06)
[2024-06-15 06:15] LABS: Troponin I 0.664 ng/mL (< 0.028)
[2024-06-15] MEDS: Ferrous Sulfate 325 MG TAB PO SCH (10:00)
[2024-06-15] MEDS ORDERED: Furosemide 20 MG (2 mL) VIAL ONE (10:52)
[2024-06-15] MEDS ORDERED: Metoprolol Tartrate 25 MG TAB ONE (10:52)
[2024-06-15] MEDS ORDERED: hydrALAZINE 25 MG TAB ONE (10:52)
[2024-06-15] MEDS: Furosemide 20 MG (2 mL) VIAL SLOW IVP SCH ×3 (10:54→15:18)
[2024-06-15] MEDS: Cyanocobalamin (Vitamin B-12) 1,000 MCG TAB PO SCH (10:55)
[2024-06-15] MEDS: Rosuvastatin 10 MG TAB PO SCH (10:55)
[2024-06-15] MEDS: Cholecalciferol 1,000 UNITS (25 MCG) TAB PO SCH (10:56)
[2024-06-15] MEDS ORDERED: Sodium Bicarbonate Tab 325 MG TAB ONE (10:57)
[2024-06-15] MEDS ORDERED: Pantoprazole DR 40 MG TAB ONE (10:59)
[2024-06-15] MEDS: Pantoprazole DR 40 MG TAB PO SCH (11:01)
[2024-06-15 15:12] VITALS: BMI 21.4
[2024-06-16 04:36] LABS: #Basophils Less than 0.03 10x3/uL (0.0-0.2); %Basophils 0.2 % (0.0-1.0); %Eosinophils 4.1 % (0.0-10.0); %Lymphocytes 13.2 % (21.0-51.0); %Monocytes 13.1 % (0.0-10.0); Hematocrit 20.9 % (42.0-52.0); Hemoglobin 6.7 g/dL (14.0-18.0); Mean Corpuscular HGB CONC 32.1 g/dL (32.0-36.0); Mean Corpuscular Hemoglobin 31.5 pg (27.0-31.0); Mean Corpuscular Volume 98.1 fL (78.0-98.0); Mean Platelet Volume 11.2 fL (7.4-10.4); Platelet Count 120 10x3/uL (130-400); RBC Distribution Width 17.2 % (11.5-14.5); Red Blood Cell (RBC) Count 2.13 mill/uL (4.70-6.10)
[2024-06-16 05:10] LABS: ALT (SGPT) 6 U/L (8-55); AST (SGOT) 10 U/L (5-34); Albumin 2.6 g/dL (3.4-4.8); Alkaline Phosphatase 42 U/L (40-110); Anion Gap 11 mmol/L (10-20); BUN (Urea Nitrogen) 50 mg/dL (8.4-25.7); Bilirubin, Total 0.5 mg/dL (0.2-1.2); Calc. Creatinine Clearance 20 mL/min (70-130); Calcium 8.1 mg/dL (7.8-10.44); Carbon Dioxide 26 mmol/L (23-31); Chloride 108 mmol/L (98-107); Estimated GFR 24; Globulin 2.1 g/dL (2.4-3.5); Glucose 97 mg/dL (83-110); Potassium 3.7 mmol/L (3.5-5.1); Protein, Total 4.7 g/dL (5.8-8.1); Sodium 141 mmol/L (136-145)
[2024-06-16] MEDS: Polyethylene Glycol 3350 17 GM Packet PO PRN (08:52)
[2024-06-16] MEDS ORDERED: hydrALAZINE 20 MG/ML VIAL SLOW IVP PRN (11:37)
[2024-06-16] MEDS: Docusate Sodium 100 MG/10 ML UDCUP PO PRN (21:18)
[2024-06-17 07:19] LABS: #Basophils Less than 0.03 10x3/uL (0.0-0.2); %Basophils 0.3 % (0.0-1.0); %Eosinophils 5.4 % (0.0-10.0); %Lymphocytes 15.2 % (21.0-51.0); %Monocytes 13.5 % (0.0-10.0); %Neutrophils 65.3 % (42.0-75.0); Hematocrit 25.7 % (42.0-52.0); Hemoglobin 8.4 g/dL (14.0-18.0); Mean Corpuscular HGB CONC 32.7 g/dL (32.0-36.0); Mean Corpuscular Hemoglobin 31.3 pg (27.0-31.0); Mean Corpuscular Volume 95.9 fL (78.0-98.0); Mean Platelet Volume 10.9 fL (7.4-10.4); Platelet Count 126 10x3/uL (130-400); RBC Distribution Width 16.8 % (11.5-14.5); Red Blood Cell (RBC) Count 2.68 mill/uL (4.70-6.10)
[2024-06-17 07:24] VITALS: TEMP 97.9
[2024-06-17 07:48] LABS: Anion Gap 13 mmol/L (10-20); BUN (Urea Nitrogen) 50 mg/dL (8.4-25.7); Calc. Creatinine Clearance 16 mL/min (70-130); Calcium 8.6 mg/dL (7.8-10.44); Carbon Dioxide 28 mmol/L (23-31); Chloride 104 mmol/L (98-107); Estimated GFR 20; Glucose 111 mg/dL (83-110); Potassium 3.8 mmol/L (3.5-5.1); Sodium 141 mmol/L (136-145)
[2024-06-17 11:32] VITALS: BP 155/69
== END 2024-06-17 12:07 | disposition home or self-care (01) | DRG 280 ==
LOC: ERS 11:51 → ERHOLD 17:49 → OBSVTOIN 06-15 09:05 → OBS 06-15 14:54
PROVIDERS: ADMIT Internal Medicine; ATTEND Internal Medicine
PROC: 30233N1 Transfusion of Nonautologous Red Blood Cells into Peripheral Vein, Percutaneous Approach (ICD-10-PCS; principal; 2024-06-14)
DX: I13.0 Hypertensive heart and chronic kidney disease with heart failure and stage 1 through stage 4 chronic kidney disease, or unspecified chronic kidney disease (principal); I50.33 Acute on chronic diastolic (congestive) heart failure; I21.4 Non-ST elevation (NSTEMI) myocardial infarction; N18.4 Chronic kidney disease, stage 4 (severe); D64.9 Anemia, unspecified; E78.5 Hyperlipidemia, unspecified; I25.10 Atherosclerotic heart disease of native coronary artery without angina pectoris; Z79.899 Other long term (current) drug therapy; N18.30 Chronic kidney disease, stage 3 unspecified; Z98.49 Cataract extraction status, unspecified eye; Z87.891 Personal history of nicotine dependence
CPT/HCPCS: 36415; 36416; 36430; 71046; 80048; 80053; 83735; 83880; 84484; 85025; 86850; 86900; 86901; 87428; 93005; 93970; J0360; J1940; J2470; P9016

== ENCOUNTER 2025-03-31 13:10 | Outpatient (CLI) | payer OTHER | END 2025-03-31 13:11 | disposition home or self-care (01) | LOC: CT 13:10 | PROVIDERS: ATTEND Thoracic Surgery (Cardiothoracic Vascular Surgery) | DX: I71.43 Infrarenal abdominal aortic aneurysm, without rupture (principal); I65.29 Occlusion and stenosis of unspecified carotid artery; J90 Pleural effusion, not elsewhere classified; K40.90 Unilateral inguinal hernia, without obstruction or gangrene, not specified as recurrent; R91.1 Solitary pulmonary nodule | CPT/HCPCS: 70490; 74176 ==